=== PATIENT | female | born 1965 | race Caucasian/White ===

== ENCOUNTER 2019-05-31 16:36 | Inpatient (IN) | payer OTHER ==
[2019-05-31 18:29] VITALS: BMI 25.9
--- NOTE | 2019-05-31 20:34 | HP ---
CIWA Score Nausea/Vomitin-No Nausea/No Vomiting Muscle Tremors: 4-Moderate,w/Arms Extend Anxiety: 3 Agitation: 1-Slight > Activity Paroxysmal Sweats: 3 (Increased facial mositure) Orientation: 0-Oriented Tacttile Disturbances: 0-None Auditory Disturbances: 0-None Visual Disturbances: 0-None Headache: 1-Very Mild CIWA-Ar Total Score: 12 - Admission Criteria [facility]ASAS Guidelines: Admission for Medically Managed Detox: Requires at least one of the followin. CIWA greater than 12 2. Seizures within the past 24 hours 3. Delirium tremens within the past 24 hours 4. Hallucinations within the past 24 hours 5. Acute intervention needed for co occurring medical disorder 6. Acute intervention needed for co occurring psychiatric disorder 7. Severe withdrawal that cannot be handled at a lower level of care (continued vomiting, continued diarrhea, abnormal vital signs) requiring intravenous medication and/or fluids 8. Patient presents the following: CIWA greater than 12 (MAGDY: 0.290) Admission Criteria Met: Admission criteria met Admission ROS S - [facility] Chief Complaint: Here for help with stopping alcohol. Allergies/Adverse Reactions: Allergies Allergy/AdvReac Type Severity Reaction Status Date / Time No Known Allergies Allergy Verified 05/31/19 18:16 History of Present Illness: 53 yo presents w/ alcohol use disorder w/ a MAGDY 0.290 seeking detox. Denies any past detox or rehabs. Has been seen at [facility] twice for alcohol use. Was seen today by [facility], after being seen for palpitations, and recommended [facility] detox. Denies hx seizures, blackouts, overdoses. Alcohol use since age 7. Currently drink 1-2 pints Vodka 4 days a week. States gets shaky if doesn't drink. Nicotine use since age 7. Smokes 1 PPD. Was taking oxycodone for back pain and stopped in December. Stopped smoking Crack 11 years ago. PMHX: HTN, Back pain, COPD; Asthma, Itching MHHx: Depression. Bipolar. On Elavil QHS for Insomnia. States compliant w/ meds.Last saw a Psych 1 month ago. Denies thoughts of harming self or others. SHx: Lives in a intermediate. Unemployed. Denies legal. Search Terms: Lamonte Josue, 1965 Search Date: 05/31/2019 08:40:40 PM The Drug Utilization Report below displays all of the controlled substance prescriptions, if any, that your patient has filled in the last twelve months. The information displayed on this report is compiled from pharmacy submissions to the Department, and accurately reflects the information as submitted by the pharmacies. This report was requested by: Pippa Barber | Reference #: [id number] There are no results for the search terms that you entered. Patient Name: LAMONTE JOSUE Date: 1965 Address: [address] [place] [address] Sex: Female Rx Written Rx Dispensed Drug Strength Quantity Days Supply Prescriber Name 05/29/2017 05/29/2017 OXYCODONE-ACETAMINOPHEN 5-325 25.0 4 MD TEETEE, EBER, EDISON Patient Name: LAMONTE JOSUE Date: 1965 Address: [address] [facility] [address] [place] [address] Sex: Female Rx Written Rx Dispensed Drug Strength Quantity Days Supply Prescriber Name 06/16/2017 06/17/2017 HYDROCODON-ACETAMINOPH 7.5-325 20.0 3 MD TEETEE, EBER, EDISON Patient Name: LAMONTE JOSUE Date: 1965 Address: [address] [place] [id number] Sex: Female Rx Written Rx Dispensed Drug Strength Quantity Days Supply Prescriber Name 03/03/2018 03/04/2018 TRAMADOL-ACETAMINOPHN 37.5-325 20.0 3 SANTOS DOMINIQUE MICHELLE 03/09/2018 03/09/2018 TRAMADOL-ACETAMINOPHN 37.5-325 20.0 5 SANTOS DOMINIQUE MICHELLE 03/30/2018 03/30/2018 TRAMADOL-ACETAMINOPHN 37.5-325 30.0 10 SANTOS DOMINIQUE MICHELLE 06/30/2018 06/30/2018 OXYCODONE-ACETAMINOPHEN 5-325 60.0 10 NAPOLEON SINGH MICHELLE 07/24/2018 07/24/2018 OXYCODONE-ACETAMINOPHEN 5-325 60.0 10 NAPOLEON SINGH MICHELLE 06/02/2018 06/03/2018 OXYCODONE-ACETAMINOPHEN 5-325 60.0 10 MD TORRES BRUCE 08/05/2018 08/05/2018 OXYCODONE-ACETAMINOPHEN 5-325 10.0 2 MD BABIN SACHIN Patient Name: LAMONTE JOSUE Date: 1965 Address: [address] [place] [address] Sex: Female Rx Written Rx Dispensed Drug Strength Quantity Days Supply Prescriber Name 08/10/2018 08/10/2018 OXYCODONE-ACETAMINOPHEN 5-325 60.0 15 NAPOLEON SINGH MICHELLE 08/25/2018 08/26/2018 OXYCODONE HCL 5 MG TABLET 60.0 8 NAPOLEON SINGH MICHELLE 09/02/2018 09/02/2018 OXYCODONE HCL 5 MG TABLET 60.0 8 NAPOLEON SINGH MICHELLE 09/14/2018 09/14/2018 OXYCODONE HCL 5 MG TABLET 60.0 8 NAPOLEON SINGH MICHELLE 09/25/2018 09/25/2018 OXYCODONE HCL 5 MG TABLET 60.0 5 NAPOLEON SINGH MICHELLE 11/03/2018 11/03/2018 OXYCODONE HCL 5 MG TABLET 60.0 5 NAPOLEON SINHG MICHELLE 10/19/2018 10/19/2018 OXYCODONE HCL 5 MG TABLET 60.0 5 NAPOLEON SINGH MICHELLE 10/09/2018 10/09/2018 OXYCODONE HCL 5 MG TABLET 60.0 5 NAPOLEON SINGH MICHELLE Patient Name: LAMONTE JOSUE Date: 1965 Address: [address] [place] [id number] Sex: Female Rx Written Rx Dispensed Drug Strength Quantity Days Supply Prescriber Name 11/24/2018 11/24/2018 OXYCODONE HCL 5 MG TABLET 60.0 5 NAPOLEON SINGH MICHELLE Exam Limitations: Intoxication (MAGDY: 0.0) - Ebola screening Have you traveled outside of the country in the last 21 days: No (N) Have you had contact with anyone from an Ebola affected area: No Have you been sick,other than usual withdrawal symptoms: No Do you have a fever: No - Review of Systems Constitutional: Changes in sleep (Difficulty falling asleep) EENT: reports: Blurred Vision, Dental Problems (Dentures.) Respiratory: reports: Wheezing Cardiac: reports: No Symptoms Reported, Palpitations (Palpatations earleir today.) GI: reports: Vomiting (A little while ago.), Indigestion (Heart burn - on omeprazole) : reports: No Symptoms Reported Musculoskeletal: reports: Back Pain (Chronic back pain radiates from (L) to (R) side. x 1 year some improvement since surgery. Pain is now sharp "8".) Integumentary: reports: Pruritus (States itching skin - chronic. Takes benadryl. ) Neuro: reports: No Symptoms reported Endocrine: reports: Increased Thirst Hematology: reports: No Symptoms Reported Psychiatric: reports: Mood/Affect Appropiate, Orientated x3, Anxious, Depressed (Denies thoughts of harming self or others.) Patient History - PPD History Previous Implant?: Yes Documented Results: Positive w/o proof Implanted On Prior [facility] Admission?: No PPD to be Administered?: No - Reproductive History Patient is a Female of Child Bearing Age (11 -55 yrs old): Yes Last Menstrual Period: 08/11/09 Patient : No - Smoking Cessation Smoking history: Current every day smoker Have you smoked in the past 12 months: Yes Aproximately how many cigarettes per day: 10 Hx Chewing Tobacco Use: No Initiated information on smoking cessation: Yes 'Breaking Loose' booklet given: 05/31/19 - Substance & Tx. History Hx Alcohol Use: Yes Hx Substance Use: Yes Substance Use Type: Alcohol, Cocaine Hx Substance Use Treatment: No - Substances abused Alcohol Substance route: Oral Frequency: Daily Amount used: 1PINT OF VODKA Age of first use: 7 Date of last use: 05/31/19 Admission Physical Exam BHS - Vital Signs Vital Signs: Vital Signs - 24 hr 05/31/19 18:08 Temperature 97.8 F Pulse Rate 98 H Respiratory 16 Rate Blood Pressure 116/74 - Physical General Appearance: Yes: Nourished, Mild Distress, Alcohol on Breath, Intoxicated, Sweating (Increased facial mositure), Anxious HEENTM: Yes: EOMI (Jerking movement of eyes upon lateral gaze), Hearing grossly Normal, Normocephalic, Normal Voice, CHICO, Pharynx Normal Respiratory: Yes: Lungs Clear, Normal Breath Sounds, No Respiratory Distress Neck: Yes: Supple Breast: Yes: Breast Exam Deferred Cardiology: Yes: Regular Rate, S1, S2, Irregular Abdominal: Yes: Normal Bowel Sounds, Non Tender, Soft, Protuberent Genitourinary: Yes: Within Normal Limits Back: Yes: Normal Inspection Musculoskeletal: Yes: full range of Motion, Gait Steady Extremities: Yes: Normal Capillary Refill, Tremors 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 NML intact (Jerking movement of eyes upon lateral gaze) Integumentary: Yes: Normal Color, Warm, Diaphoresis (Increased facial mositure) Lymphatic: Yes: Within Normal Limits - Diagnostic (1) Alcohol dependence with intoxication, uncomplicated Current Visit: Yes Status: Acute (2) History of positive PPD, untreated Current Visit: Yes Status: Chronic (3) COPD (chronic obstructive pulmonary disease) Current Visit: Yes Status: Chronic Qualifiers: COPD type: unspecified COPD Qualified Code(s): J44.9 - Chronic obstructive pulmonary disease, unspecified (4) Nicotine dependence, unspecified, uncomplicated Current Visit: Yes Status: Chronic Qualifiers: Nicotine product type: cigarettes Qualified Code(s): F17.210 - Nicotine dependence, cigarettes, uncomplicated (5) Chronic back pain greater than 3 months duration Current Visit: Yes Status: Chronic (6) Acid reflux Current Visit: Yes Status: Chronic Qualifiers: Esophagitis presence: without esophagitis Qualified Code(s): K21.9 - Gastro -esophageal reflux disease without esophagitis (7) Essential (primary) hypertension Current Visit: Yes Status: Chronic (8) Chronic pruritus Current Visit: Yes Status: Chronic Cleared for Admission [facility] - Detox or Rehab [facility] Level of Care: Medically Managed Detox Regimen/Protocol: Librium Claeared for Rehab Admission: No Breathalyzer - Breathalyzer Breathalyzer: 0.290 Urine Drug Screen - Test Device Lot number: [id number] Expiration date: 01/08/21 - Control Is test valid?: Yes - Results Drug screen NEGATIVE: No Inpatient Rehab Admission - Rehab Decision to Admit Inpatient rehab admission?: No
[2019-05-31] MEDS ORDERED: ACETAMINOPHEN 325 MG TABLET (FP) PO PRN ×2 (21:14)
[2019-05-31] MEDS ORDERED: NICOTINE POLACRILEX 2 MG GUM BUC PRN (21:14)
[2019-05-31] MEDS ORDERED: MAG HYDROX/AL HYDROX/SIMETH 30 ML UNIT-DOSE CUP PO PRN (21:14)
[2019-05-31] MEDS ORDERED: BISMUTH SUBSALICYLATE 524 MG/30 ML UD PO PRN (21:14)
[2019-05-31] MEDS ORDERED: MELATONIN 5 MG TABLETS PO PRN (21:14)
[2019-05-31] MEDS ORDERED: MENTHOL/PHENOL 1 EACH UD MM PRN (21:14)
[2019-05-31] MEDS ORDERED: chlordiazePOXIDE HCL 10 MG CAPSULE PO PRN (21:14)
[2019-05-31] MEDS ORDERED: MAGNESIUM HYDROX 2400MG/30ML ORAL SUSPENSION 30 ML CUP PO PRN (21:14)
[2019-05-31] MEDS ORDERED: MAGNESIUM CITRATE 300 ML BOTTLE PO PRN (21:14)
[2019-05-31] MEDS ORDERED: hydrOXYzine PAMOATE 25 MG CAPSULE (FP) PO PRN (21:20)
[2019-05-31] MEDS: THIAMINE HCL 100 MG TABLET (FP) PO SCH (22:43)
[2019-05-31] MEDS: chlordiazePOXIDE HCL 25 MG CAPSULE PO SCH (22:43)
[2019-05-31] MEDS: ATORVASTATIN CA 10 MG TABLET (FP) PO SCH (22:43)
[2019-05-31] MEDS: PANTOPRAZOLE 20 MG TABLET (FP) PO SCH (22:43)
[2019-05-31] MEDS ORDERED: AMITRIPTYLINE HCL 50 MG TABLET PO ONE (23:00)
[2019-06-01] MEDS: chlordiazePOXIDE HCL 25 MG CAPSULE PO SCH ×3 (06:01→21:46)
[2019-06-01] MEDS: ALBUTEROL SO4 8 GM HFA INHALER IH PRN (06:13)
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
[2019-06-01] MEDS: PANTOPRAZOLE 20 MG TABLET (FP) PO SCH ×2 (10:30→21:46)
[2019-06-01] MEDS: NICOTINE 14 MG/24 HOURS TOPICAL PATCH TD SCH (10:30)
[2019-06-01] MEDS: LISINOPRIL 20 MG TABLET (FP) PO SCH (10:30)
[2019-06-01] MEDS: PRENATAL VITAMINS W/ FOLIC ACID TABLET (FP) PO SCH (10:30)
[2019-06-01 12:08] LABS: HEMATOCRIT 33.3 % (32.4-45.2); HEMOGLOBIN 10.2 GM/dL (10.7-15.3); MCH 23.6 pg (25.7-33.7); MCHC 30.5 g/dl (32.0-36.0); MEAN CELL VOLUME 77.4 fl (80-96); MEAN PLT VOLUME 8.1 fl (7.5-11.1); PLATELET COUNT 434 K/MM3 (134-434); RBC 4.31 M/mm3 (3.60-5.2); RDW 21.7 % (11.6-15.6); WHITE BLOOD COUNT 8.8 K/mm3 (4.0-10.0)
[2019-06-01 12:20] LABS: BILIRUBIN,TOTAL 0.3 mg/dL (0.2-1); BLOOD UREA NITROGEN 14.2 mg/dL (7-18); CALCIUM 9.2 mg/dL (8.5-10.1); CREATININE 0.7 mg/dL (0.55-1.3); POTASSIUM 4.4 mmol/L (3.5-5.1); TOT PROT 6.6 g/dl (6.4-8.2)
--- NOTE | 2019-06-01 12:33 | PN ---
S CIWA - CIWA Score Nausea/Vomitin-No Nausea/No Vomiting Muscle Tremors: 3 Anxiety: 2 Agitation: 3 Paroxysmal Sweats: 3 Orientation: 0-Oriented Tacttile Disturbances: 0-None Auditory Disturbances: 0-None Visual Disturbances: 0-None Headache: 0-None Present CIWA-Ar Total Score: 11 BHS Progress Note (SOAP) Subjective: sweats shakes interrupted sleep body aches N/V Objective: 06/01/19 12:32 Vital Signs Temperature 96.8 F L 06/01/19 11:25 Pulse Rate 99 H 06/01/19 11:25 Respiratory Rate 18 06/01/19 11:25 Blood Pressure 161/71 06/01/19 11:25 O2 Sat by Pulse Oximetry (%) Laboratory Tests 05/31/19 06/01/19 06/01/19 20:04 08:40 08:40 WBC 8.8 RBC 4.31 Hgb 10.2 L Hct 33.3 MCV 77.4 L MCH 23.6 L MCHC 30.5 L RDW 21.7 H Plt Count 434 MPV 8.1 Sodium 140 Potassium 4.4 Chloride 106 Carbon Dioxide 28 Anion Gap 6 L BUN 14.2 Creatinine 0.7 Est GFR (CKD-EPI)AfAm 113.84 Est GFR (CKD-EPI)NonAf 98.23 Random Glucose 87 Calcium 9.2 Total Bilirubin 0.3 AST 20 ALT 39 Alkaline Phosphatase 113 Total Protein 6.6 Albumin 3.0 L POC Urine HCG, Qual Negative labs noted aaox3 ambulating no acute distress Assessment: 06/01/19 12:32 withdrawal sx Plan: continue detox increase fluids judie collier prn
[2019-06-01] MEDS ORDERED: ONDANSETRON *ODT* 4 MG TABLET SL PRN (12:34)
--- NOTE | 2019-06-01 13:35 | EKG ---
Test Reason : Blood Pressure : / mmHG Vent. Rate : 090 BPM Atrial Rate : 090 BPM P-R Int : 144 ms QRS Dur : 086 ms QT Int : 368 ms P-R-T Axes : -13 009 000 degrees QTc Int : 450 ms NORMAL SINUS RHYTHM NONSPECIFIC ST ABNORMALITY ABNORMAL ECG NO PREVIOUS ECGS AVAILABLE Confirmed by MD Amy, Korey ([id number]) on 06/01/2019 1:35:33 PM Referred By: Confirmed By:Korey Reyes MD
[2019-06-01] MEDS: IBUPROFEN 400 MG TABLET (FP) PO PRN (17:39)
[2019-06-01] MEDS: THIAMINE HCL 100 MG TABLET (FP) PO SCH (21:46)
[2019-06-01] MEDS: ATORVASTATIN CA 10 MG TABLET (FP) PO SCH (21:46)
[2019-06-02] MEDS: chlordiazePOXIDE 5 MG CAPSULE PO SCH ×3 (06:26→21:48)
[2019-06-02 09:50] LABS: EPI CELLS 5.7 /HPF (0-5/HPF); HYALINE CASTS 36 /lpf (0-8); URINE APPEARANCE CLOUDY; URINE BILIRUBIN NEGATIVE (NEGATIVE); URINE COLOR DK YELLOW; URINE GLUCOSE (UA) NEGATIVE (NEGATIVE); URINE KETONE TRACE (NEGATIVE); URINE LEUK ESTERASE 2+ (NEGATIVE); URINE NITRITE NEGATIVE (NEGATIVE); URINE PROTEIN TRACE (NEGATIVE); URINE RBC 1 /hpf (0-4); URINE WBC 58 /hpf (0-5)
[2019-06-02] MEDS: PANTOPRAZOLE 20 MG TABLET (FP) PO SCH ×2 (10:30→22:49)
[2019-06-02] MEDS: LISINOPRIL 20 MG TABLET (FP) PO SCH (10:30)
[2019-06-02] MEDS: NICOTINE 14 MG/24 HOURS TOPICAL PATCH TD SCH (10:30)
[2019-06-02] MEDS: PRENATAL VITAMINS W/ FOLIC ACID TABLET (FP) PO SCH (10:30)
[2019-06-02 10:39] LABS: URINE CRYSTALS 2+ CALCIUM OXALATE /hpf
[2019-06-02] MEDS: METHOCARBAMOL 500 MG TABLET PO PRN ×2 (11:20→22:51)
[2019-06-02] MEDS: IBUPROFEN 400 MG TABLET (FP) PO PRN ×2 (11:20→22:51)
--- NOTE | 2019-06-02 11:48 | PN ---
S CIWA - CIWA Score Nausea/Vomitin-No Nausea/No Vomiting Muscle Tremors: 2 Anxiety: 2 Agitation: 2 Paroxysmal Sweats: 2 Orientation: 0-Oriented Tacttile Disturbances: 0-None Auditory Disturbances: 0-None Visual Disturbances: 0-None Headache: 0-None Present CIWA-Ar Total Score: 8 BHS Progress Note (SOAP) Subjective: sweats agitation feeling better Objective: 06/02/19 11:44 Vital Signs Temperature 97.9 F 06/02/19 09:26 Pulse Rate 92 H 06/02/19 09:26 Respiratory Rate 16 06/02/19 09:26 Blood Pressure 122/74 06/02/19 09:26 O2 Sat by Pulse Oximetry (%) Laboratory Tests 05/31/19 06/01/19 06/01/19 20:04 08:40 08:40 WBC 8.8 RBC 4.31 Hgb 10.2 L Hct 33.3 MCV 77.4 L MCH 23.6 L MCHC 30.5 L RDW 21.7 H Plt Count 434 MPV 8.1 Sodium 140 Potassium 4.4 Chloride 106 Carbon Dioxide 28 Anion Gap 6 L BUN 14.2 Creatinine 0.7 Est GFR (CKD-EPI)AfAm 113.84 Est GFR (CKD-EPI)NonAf 98.23 Random Glucose 87 Calcium 9.2 Total Bilirubin 0.3 AST 20 ALT 39 Alkaline Phosphatase 113 Total Protein 6.6 Albumin 3.0 L Urine Color Urine Appearance Urine pH Ur Specific [place] Urine Protein Urine Glucose (UA) Urine Ketones Urine Blood Urine Nitrite Urine Bilirubin Urine Urobilinogen Ur Leukocyte Esterase Urine WBC (Auto) Urine RBC (Auto) Urine Casts (Auto) U Epithel Cells (Auto) Urine Crystals (Auto) Urine Bacteria (Auto) POC Urine HCG, Qual Negative RPR Titer 06/01/19 06/02/19 08:40 08:15 WBC RBC Hgb Hct MCV MCH MCHC RDW Plt Count MPV Sodium Potassium Chloride Carbon Dioxide Anion Gap BUN Creatinine Est GFR (CKD-EPI)AfAm Est GFR (CKD-EPI)NonAf Random Glucose Calcium Total Bilirubin AST ALT Alkaline Phosphatase Total Protein Albumin Urine Color Dk yellow Urine Appearance Cloudy Urine pH 6.0 Ur Specific [place] 1.033 Urine Protein Trace Urine Glucose (UA) Negative Urine Ketones Trace H Urine Blood Negative Urine Nitrite Negative Urine Bilirubin Negative Urine Urobilinogen 1.0 Ur Leukocyte Esterase 2+ H Urine WBC (Auto) 58 Urine RBC (Auto) 1 Urine Casts (Auto) 36 U Epithel Cells (Auto) 5.7 Urine Crystals (Auto) 2+ calcium oxalate Urine Bacteria (Auto) 493.0 POC Urine HCG, Qual RPR Titer Nonreactive labs noted will repeat urine pt agreed to take ABX for a UTI encourage water intake aaox3 ambulating no acute distress Assessment: 06/02/19 11:47 withdrawals Plan: continue detox macrobid 50mg q6hrs x 5 days ordered repeat u/a
[2019-06-02] MEDS: NITROFURANTOIN MACROCRYSTAL 50 MG CAPSULE (FP) PO SCH ×3 (14:46→23:16)
[2019-06-02] MEDS: ATORVASTATIN CA 10 MG TABLET (FP) PO SCH (22:49)
[2019-06-02] MEDS: THIAMINE HCL 100 MG TABLET (FP) PO SCH (22:49)
[2019-06-02] MEDS: AMITRIPTYLINE HCL 100 MG TABLET PO SCH (22:49)
[2019-06-02] MEDS: ALBUTEROL SO4 8 GM HFA INHALER IH PRN (22:52)
[2019-06-03] MEDS ORDERED: chlordiazePOXIDE HCL 10 MG CAPSULE PO PRN
[2019-06-03] MEDS: chlordiazePOXIDE HCL 10 MG CAPSULE PO SCH ×3 (05:46→22:00)
[2019-06-03] MEDS: NITROFURANTOIN MACROCRYSTAL 50 MG CAPSULE (FP) PO SCH ×3 (05:46→19:21)
[2019-06-03] MEDS: ALBUTEROL SO4 8 GM HFA INHALER IH PRN (05:55)
[2019-06-03] MEDS: IBUPROFEN 400 MG TABLET (FP) PO PRN ×2 (05:56→22:38)
[2019-06-03] MEDS: METHOCARBAMOL 500 MG TABLET PO PRN (05:58)
[2019-06-03] MEDS: NICOTINE 14 MG/24 HOURS TOPICAL PATCH TD SCH (10:39)
[2019-06-03] MEDS: PANTOPRAZOLE 20 MG TABLET (FP) PO SCH ×2 (10:39→22:36)
[2019-06-03] MEDS: LISINOPRIL 20 MG TABLET (FP) PO SCH (10:39)
[2019-06-03] MEDS: PRENATAL VITAMINS W/ FOLIC ACID TABLET (FP) PO SCH (10:39)
--- NOTE | 2019-06-03 12:34 | PN ---
S CIWA - CIWA Score Nausea/Vomitin-No Nausea/No Vomiting Muscle Tremors: 1-None Visible, but [place] Anxiety: 1-Mildly Anxious Agitation: 2 Paroxysmal Sweats: No Perspiration Orientation: 0-Oriented Tacttile Disturbances: 0-None Auditory Disturbances: 0-None Visual Disturbances: 0-None Headache: 0-None Present CIWA-Ar Total Score: 4 BHS Progress Note (SOAP) Subjective: anxiety Objective: 06/03/19 12:34 Vital Signs Temperature 98.1 F 06/03/19 09:45 Pulse Rate 100 H 06/03/19 09:45 Respiratory Rate 18 06/03/19 09:45 Blood Pressure 158/90 06/03/19 09:45 O2 Sat by Pulse Oximetry (%) aaox3 ambulating no acute distress Assessment: 06/03/19 12:34 mild withdrawal Plan: continue detox increase fluids will sent Rx for uti to her pharmacy; pt was made aware.
[2019-06-03] MEDS: AMITRIPTYLINE HCL 100 MG TABLET PO SCH (22:35)
[2019-06-03] MEDS: ATORVASTATIN CA 10 MG TABLET (FP) PO SCH (22:36)
[2019-06-03] MEDS: THIAMINE HCL 100 MG TABLET (FP) PO SCH (22:36)
[2019-06-04] MEDS ORDERED: chlordiazePOXIDE HCL 10 MG CAPSULE PO ONE (05:00)
[2019-06-04] MEDS: NITROFURANTOIN MACROCRYSTAL 50 MG CAPSULE (FP) PO SCH ×2 (06:25→06:42)
[2019-06-04] MEDS: IBUPROFEN 400 MG TABLET (FP) PO PRN (06:26)
[2019-06-04 06:47] VITALS: BP 138/78; PULSE 84; TEMP 96.4
--- NOTE | 2019-06-04 09:52 | DS ---
[facility] Detox Discharge Summary Admission Date: 05/31/19 Discharge Date: 06/04/19 - History Present History: Alcohol Dependence - Physical Exam Results Vital Signs: Vital Signs Temperature 96.4 F L 06/04/19 06:00 Pulse Rate 84 06/04/19 06:00 Respiratory Rate 16 06/04/19 06:00 Blood Pressure 138/78 06/04/19 06:00 O2 Sat by Pulse Oximetry (%) - Treatment Hospital Course: Detox Protocol Followed, Detoxed Safely, Responded well, Discharged Condition Good - Medication Discharge Medications: Ambulatory Orders Albuterol Sulfate Inhaler - [Ventolin HFA Inhaler -] 1 - 2 inh Q4H PRN 05/31/19 Amitriptyline HCl [Elavil -] 100 mg PO HS 05/31/19 Atorvastatin Ca [Lipitor] 10 mg PO HS 05/31/19 Clonidine HCl 0.1 mg PO TID 05/31/19 Diphenhydramine [Benadryl -] 50 mg PO BID PRN 05/31/19 Lisinopril [Prinivil] 20 mg PO DAILY 05/31/19 Omeprazole 40 mg PO BID 05/31/19 Nitrofurantoin Macrocrystal [Macrodantin -] 50 mg PO Q6HPO #20 capsule 06/03/19 - Diagnosis (1) Alcohol dependence with intoxication, uncomplicated Status: Chronic (2) Cannabis dependence Status: Chronic (3) Acid reflux Status: Chronic Qualifiers: Esophagitis presence: without esophagitis Qualified Code(s): K21.9 - Gastro -esophageal reflux disease without esophagitis (4) COPD (chronic obstructive pulmonary disease) Status: Chronic Qualifiers: COPD type: unspecified COPD Qualified Code(s): J44.9 - Chronic obstructive pulmonary disease, unspecified (5) Chronic back pain greater than 3 months duration Status: Chronic (6) Essential (primary) hypertension Status: Chronic (7) Nicotine dependence, unspecified, uncomplicated Status: Chronic Qualifiers: Nicotine product type: cigarettes Qualified Code(s): F17.210 - Nicotine dependence, cigarettes, uncomplicated - AMA Did Patient Leave Against Medical Advice: No
[2019-06-04 10:41] LABS: EPI CELLS 3.5 /HPF (0-5/HPF); HYALINE CASTS 2 /lpf (0-8); URINE APPEARANCE CLEAR; URINE BACTERIA 80.5 /hpf (NEGATIVE); URINE BILIRUBIN NEGATIVE (NEGATIVE); URINE COLOR YELLOW; URINE GLUCOSE (UA) NEGATIVE (NEGATIVE); URINE KETONE NEGATIVE (NEGATIVE); URINE LEUK ESTERASE 1+ (NEGATIVE); URINE NITRITE NEGATIVE (NEGATIVE); URINE PROTEIN NEGATIVE (NEGATIVE); URINE RBC 1 /hpf (0-4); URINE UROBILINOGEN 0.2 mg/dL (0.2-1.0); URINE WBC 8 /hpf (0-5)
== END 2019-06-04 08:07 | disposition home or self-care (01) | DRG 775 ==
LOC: YASAS 16:36 → Y6N 21:14
PROVIDERS: ADMIT Allergy & Immunology; ATTEND Allergy & Immunology
PROC: HZ2ZZZZ Detoxification Services for Substance Abuse Treatment (ICD-10-PCS; principal; 2019-05-31)
DX: F10.230 Alcohol dependence with withdrawal, uncomplicated (principal); F12.20 Cannabis dependence, uncomplicated; F17.210 Nicotine dependence, cigarettes, uncomplicated; F19.280 Other psychoactive substance dependence with psychoactive substance-induced anxiety disorder; F19.282 Other psychoactive substance dependence with psychoactive substance-induced sleep disorder; F39 Unspecified mood [affective] disorder; F60.3 Borderline personality disorder; I10 Essential (primary) hypertension; J44.9 Chronic obstructive pulmonary disease, unspecified; K21.9 Gastro-esophageal reflux disease without esophagitis; E78.5 Hyperlipidemia, unspecified; R76.11 Nonspecific reaction to tuberculin skin test without active tuberculosis; M54.9 Dorsalgia, unspecified; G89.29 Other chronic pain
CPT/HCPCS: 36415; 80053; 81003; 81025; 85027; 86593; 93005; 93010